=== PATIENT | female | born 1990 | race Asian ===

== ENCOUNTER 2018-04-08 05:58 | Emergency (ER) | payer OTHER ==
[~2018-04-08] VITALS: Ht 157.5 cm; Wt 47.6 kg
[2018-04-08 06:04] VITALS: BP 129/94
--- NOTE | 2018-04-08 06:10 | NUR ---
27 YO FEMALE BB SELF. PATIENT IS ALERT AND ORIENTED, C/O LOWER ABD PAIN X 330AM, NO N/V/D, NO HEMATURIA, NO DYSURIA SCHEDULED FOR EGG DONATION AT [facility] TODAY. PATIENT AMBULATED TO ER BED WITH STEADY AGIT, SKIN WARM AND DRY, RESP EVEN AND UNLABORED. AWAITING ORDERS FROM PROVIDER, WILL CONTINUE TO MONITOR
--- NOTE | 2018-04-08 06:47 | NUR ---
US TECH CALLED,SPOKE W/ BART IN RADIOLOGY
[2018-04-08] MEDS ORDERED: ACETAMINOPHEN ES 500 MG TABLET ONE (06:54)
[2018-04-08] MEDS ORDERED: ACETAMINOPHEN ES 500 MG TABLET PO ONE (07:00)
--- NOTE | 2018-04-08 07:50 | NUR ---
US TECH AT THE BEDSIDE. Female algebraist accompanied female patient for VAGINAL ULTRA SOUND.
== END 2018-04-08 08:12 | disposition home or self-care (01) ==
LOC: ER 06:04
DX: N83.202 Unspecified ovarian cyst, left side (principal); R10.2 Pelvic and perineal pain
CPT/HCPCS: 76856; 99284; A4606; A6403; Z7610